=== PATIENT | female | born 1990 | race African-American/Black ===

== ENCOUNTER 2018-02-24 08:34 | Outpatient (CLI) | payer OTHER | END 2018-02-24 19:37 | disposition home or self-care (01) | LOC: US 08:34 → LAB 08:34 → US 09:00 | DX: R94.5 Abnormal results of liver function studies (principal) | CPT/HCPCS: 36415; 82103; 82390; 82525; 82728; 83516; 83540; 83550; 86039 ==

== ENCOUNTER 2018-09-05 08:25 | Emergency (ER) | payer OTHER ==
[~2018-09-05] VITALS: Ht 149.9 cm; Wt 51.3 kg
[2018-09-05 09:58] LABS: PLATELET COUNT 315 K/uL (152-353)
[2018-09-05 10:19] LABS: POTASSIUM 3.9 mmol/L (3.6-5.2)
[2018-09-05 10:50] VITALS: BP 107/68; TEMP 99
== END 2018-09-05 10:50 | disposition home or self-care (01) ==
LOC: ED 08:25
PROVIDERS: Family Medicine
DX: K52.89 Other specified noninfective gastroenteritis and colitis (principal)
CPT/HCPCS: 80053; 81000; 81025; 85027; 99283

== ENCOUNTER 2019-02-28 07:42 | Outpatient (CLI) | payer OTHER | END 2019-02-28 23:59 | LOC: LABW 07:42 | DX: N92.6 Irregular menstruation, unspecified (principal); F41.8 Other specified anxiety disorders | CPT/HCPCS: 36415; 82670; 83001; 83002; 84145; 84403; 84436; 84443 ==

== ENCOUNTER 2020-05-03 19:14 | Emergency (ER) | payer OTHER ==
[~2020-05-03] VITALS: Ht 149.9 cm; Wt 56.7 kg
[2020-05-03 20:12] VITALS: BP 120/72; TEMP 100.2
== END 2020-05-03 20:15 | disposition home or self-care (01) ==
LOC: ED 19:14
DX: J36 Peritonsillar abscess (principal)
CPT/HCPCS: 87651; 99282; 99283

== ENCOUNTER 2020-09-08 14:16 | Outpatient (CLI) | payer OTHER | END 2020-09-08 23:17 | disposition home or self-care (01) | LOC: LABW 14:16 | PROVIDERS: ATTEND Family Medicine | DX: N89.8 Other specified noninflammatory disorders of vagina (principal) | CPT/HCPCS: 81000; 87490; 87590 ==

== ENCOUNTER 2022-07-22 13:59 | Outpatient (CLI) | payer OTHER | END 2022-07-22 19:01 | disposition home or self-care (01) | LOC: MAMMO 13:59 | PROVIDERS: ATTEND Family Medicine | DX: M54.2 Cervicalgia (principal); Z98.82 Breast implant status; M54.89 Other dorsalgia | CPT/HCPCS: G0279 ==